=== PATIENT | female | born 2005 | race Hispanic/Latino ===

== ENCOUNTER 2025-08-15 10:28 | Emergency (ER) | payer SELFPAY ==
[~2025-08-15] VITALS: Ht 157.5 cm; Wt 50.3 kg
[2025-08-15 10:30] VITALS: BP 120/70; PULSE 108; RESP 20; TEMP 99.7
--- NOTE | 2025-08-15 10:35 | ERN ---
ED Note History of Present Illness Stated Complaint: PAINFUL URINATION Chief Complaint: Painful Urination Time Seen by MD: 10:31 Dictation: PATIENT IS A 20-YEAR-OLD FEMALE COMING IN TODAY WITH COMPLAINTS OF SUPRAPUBIC PAIN DYSURIA FOR THE LAST FOUR DAYS. SHE ALSO STATES SHE HAS LOW BACK PAIN HOWEVER THERE WAS NO CVAT IN TRIAGE. SHE HAS NO FEVER NO CHILLS NO NAUSEA VOMITING. STATES SHE IS SEXUALLY ACTIV AND USES CONDOMS. SAID I MIGHT BE ON-CALL. NO PRIMARY CARE Allergies: Coded Allergies: No Known Allergies (Unverified Allergy, Unknown, 08/15/25) Past Medical History History: Not Applicable RN Note Reviewed/Agreed w/PFSH: Yes Review of System Dictation CONSTITUTIONAL: NEGATIVE EXCEPT FOR HPI HEAD/FACE: NEGATIVE EXCEPT FOR HPI EENT: NEGATIVE EXCEPT FOR HPI RESPIRATORY: NEGATIVE EXCEPT FOR HPI GASTROINTESTINAL/ABDOMINAL: NEGATIVE EXCEPT FOR HPI GENITOURINARY: NEGATIVE EXCEPT FOR HPI SUPRAPUBIC TENDERNESS WITH DYSURIA MUSCULOSKELETAL: NEGATIVE EXCEPT FOR HPI LOW BACK PAIN INTEGUMENTARY: NEGATIVE EXCEPT FOR HPI NEUROLOGICAL/PSYCH: NEGATIVE EXCEPT FOR HPI HEMATOLOGIC/LYMPHATIC: NEGATIVE EXCEPT FOR HPI ALL SYSTEMS NEGATIVE, EXCEPT NOTED ABOVE. 13 POINT REVIEW OF SYSTEMS ASSESSED AND ALL NEGATIVE EXCEPT FOR ABOVE. Initial Vital Sign VS Vital Signs Date Time Temp Pulse Resp B/P (MAP) Pulse Ox O2 Delivery O2 Flow Rate FiO2 08/15/25 10:30 99.7 108 20 120/70 98 Room Air Physical Exam Dictation VITAL SIGNS REVIEWED MS ACUTE DISTRESS, WELL DEVELOPED, NOURISHED. HEAD AND FACE: NON-TRAUMATIC. EYES: PERRL, PINK CONJUNCTIVAS, EYELID NO TRAUMA, ANTERIOR CHAMBER WITH ARCUS SENILIS. EARS: PINNAS INTACT AND NO SIGNS OF TRAUMA OR ERYTHEMA EAR CANALS CLEAR AND NO DISCHARGE TM NO ERYTHEMA NOSE: NO DISCHARGE, NO BLEEDING. OROPHARYNX: MOUTH NORMAL, TONGUE PINK, PHARYNX CLEAR,NO ERYTHEMA, TONSILS NO EXUDATES, NO ABSCESSES NOTED, MUCOUS MEMBRANE MOIST NECK: SUPPLE, NON-TENDER, NO THYROMEGALY, NO MASSES, NO JVD, NO BRUITS BREAST:DEFERRED CHEST:NO TENDERNESS, NO CREPITUS, NO PARADOXICAL MOVEMENT, NO RETRACTIONS LUNGS:CLEAR, WELL-VENTILATED, SYMMETRIC, NO RALES, NO WHEEZING, NO RHONCHI, NO STRIDOR, GOOD BREATH SOUNDS BILATERALLY HEART: REGULAR RATE, REGULAR RHYTHM, NO MURMUR, NO GALLOPS VASCULAR: NO PERIPHERAL EDEMA, ABDOMEN: SOFT, POSITIVE BOWEL SOUNDS, NONDISTENDED, NO GUARDING, NONTENDER, NO REBOUND, NO MASSES NO HEPATOMEGALY, NO SPLENOMEGALY, NO FREIRE'S SIGN, NO HERNIAS. NEGATIVE CVAT BILATERALLY RECTAL: DEFERRED GENITAL: DEFERRED MILD SUPRAPUBIC TENDERNESS, PALPATED OVER HER CLOTHES IN TRIAGE NEUROLOGICAL: NORMAL SPEECH, MOTOR FUNCTION INTACT, SENSORY FUNCTION INTACT MUSCULOSKELETAL: NECK NONTENDER, FULL RANGE OF MOTION, BACK NONTENDER, FULL RANGE OF MOTION, EXTREMITIES: NONTENDER, FULL RANGE OF MOTION SKIN: COLOR PINK, DRY, NO TURGOR, NO RASH, NO LACERATIONS, NO ABRASIONS, NO CONTUSIONS. LYMPHATIC: DEFERRED Results (Laboratory/Radiology) Laboratory/Radiology Laboratory Tests Test 08/15/25 10:52 08/15/25 10:55 White Blood Count 10.0 K/uL (4.8-10.8) Red Blood Count 4.31 MIL/uL (4.00-5.50) Hemoglobin 10.9 g/dL (12.0-16.0) L Hematocrit 35.0 % (36-48) L Mean Corpuscular Volume 81.2 fL (80-100) Mean Corpuscular Hemoglobin 25.3 pg (27.0-33.0) L Mean Corpuscular Hemoglobin Concent 31.1 g/dL (32.0-36.0) L Red Cell Distribution Width 15.9 % (11.0-15.5) H Platelet Count 272 K/uL (130-400) Mean Platelet Volume 10.7 fL (7.5-10.5) H Immature Granulocyte % (Auto) 0.2 % (0-1) Neutrophils (%) (Auto) 59.4 % (40.0-77.0) Lymphocytes (%) (Auto) 31.4 % (21.0-51.0) Monocytes (%) (Auto) 8.2 % (3.0-13.0) Eosinophils (%) (Auto) 0.6 % (0.0-8.0) Basophils (%) (Auto) 0.2 % (0.0-5.0) Neutrophils # (Auto) 6.0 K/uL (1.8-7.7) Lymphocytes # (Auto) 3.2 K/uL (1.0-4.8) Monocytes # (Auto) 0.8 K/uL (0.1-1.0) Eosinophils # (Auto) 0.06 K/uL (0.00-0.70) Basophils # (Auto) 0.02 K/uL (0.00-0.20) Absolute Immature Granulocyte (auto 0.02 K/uL (0-1) Nucleated Red Blood Cells 0.0 % (0.0-0.19) Sodium Level 134 mmol/L (136-145) L Potassium Level 3.4 mmol/L (3.5-5.1) L Chloride Level 99 mmol/L (101-111) L Carbon Dioxide Level 28 mmol/L (21-32) Blood Urea Nitrogen 6 mg/dL (7-18) L Creatinine 0.8 mg/dL (0.5-1.0) Glomerular Filtration Rate Calc 108 mL/min (>90) Random Glucose 117 mg/dL (70-105) H Total Calcium 9.0 mg/dL (8.5-10.1) Urine Color LIGHT-ORANGE (YELLOW) Urine Appearance TURBID (CLEAR) Urine pH 6.5 (5.0-8.0) Urine Specific [place] 1.016 (1.001-1.031) Urine Protein 100 mg/dL (NEGATIVE) H Urine Glucose (UA) NEGATIVE mg/dL (NEGATIVE) Urine Ketones 60 mg/dL (NEGATIVE) H Urine Occult Blood MODERATE (NEGATIVE) H Urine Nitrate NEGATIVE (NEGATIVE) Urine Bilirubin NEGATIVE mg/dL (NEGATIVE) Urine Urobilinogen 0.2 mg/dL (0.2-1.0) Urine Leukocyte Esterase 500 Winifred/uL (NEGATIVE) H Urine RBC 11-25 /HPF (0-1) H Urine WBC TNTC /HPF (0-1) H Urine WBC Clumps (Auto) MANY /HPF (0-1) Urine Squamous Epithelial Cells FEW /HPF (0-2) Urine Non-Squamous Epithelial Cells 6 /HPF (0-2) Urine Other Crystals (Auto) 20 /HPF (None Seen) Urine Bacteria MOD /HPF (None Seen) Urine Yeast MANY /HPF (None Seen) Urine HCG, Qualitative NEGATIVE (NEGATIVE) Labs Reviewed?: Yes ED Course ED Course Orders Procedure Category Date Status Time Cbc With Differential LAB 08/15/25 Complete ,Urine Test LAB 08/15/25 Complete 10:32 Urinalysis Profile LAB 08/15/25 Complete 10:32 Basic Metabolic Panel LAB 08/15/25 Complete 10:32 Acetaminophen 500mg PHA 08/15/25 Complete Tab (Tylenol 500mg T 11:00 Phenazopyridine Hcl PHA 08/15/25 Complete 200 Mg Tab (Pyridium 11:00 Culture Urine TRAVIS 08/15/25 In Process 11:18 Amox/Clav 875/125mg PHA 08/15/25 Verified Tab (Augmentin 875-1 12:00 Current Medications Medications (Trade) Dose Ordered Sig/Veto Route PRN Reason Start Time Stop Time Status Last Admin Dose Admin Acetaminophen (TYLenol 500MG TAB) 1,000 mg ONCE ONCE PO 08/15/25 11:00 08/15/25 11:01 DC 08/15/25 11:33 Phenazopyridine HCl (PYRIdium HCL 200 MG TAB) 200 mg ONCE ONCE PO 08/15/25 11:00 08/15/25 11:01 DC 08/15/25 11:31 Vital Signs Date Time Temp Pulse Resp B/P (MAP) Pulse Ox O2 Delivery O2 Flow Rate FiO2 08/15/25 11:33 99.5 08/15/25 10:30 99.7 108 20 120/70 98 Room Air 1135/patient states pain is improved after treatment. Additionally she was loaded with the Augmentin 875 for acute cystitis Discharged home with same and told increase fluids. Medical Decision Making MDM Medical discharge making based on basic labs and urinalysis to rule out urolithiasis versus UTI Patient positive for acute cystitis with hematuria, negative We will be discharged home with a Augmentin 875 and Pyridium with ibuprofen Told increase your water intake. See your primary care doctor for follow up and given a list of primary care doctors on staff DX & DISP Disposition: Discharge Departure Impression: Primary Impression: Acute cystitis with hematuria Additional Impressions: Hypokalemia, Dehydration Condition: Stable Scripts Phenazopyridine HCl (Pyridium) 200 Mg Tablet 200 MG PO TID for painful urination for 3 Days, #9 TAB 0 Refills Prov: TENISHA JOHNSTON SPECIAL PROCEDURE TECH 08/15/25 Ibuprofen (Ibuprofen 800 mg Tab) 800 Mg Tab 800 MG PO Q8H PRN for fever or pain, #30 TAB 0 Refills Prov: TENISHA JOHNSTON [employer] PROC[employer]URE TECH 08/15/25 Amoxicillin/Potassium Clav (Amox Tr-K Clv 875-125 mg Tab) 875 Mg-125 Mg Tablet 1 EACH PO BID for 7 Days, #14 TAB 0 Refills Prov: TENISHA JOHNSTON 08/15/25 Additional Instructions: Follow-up with primary care provider in 1 to 2 days. Take medications as directed here in the emergency room. Okay to continue home medications unless otherwise discussed during your visit in the emergency room today. Return to your nearest emergency room if symptoms worsen or if there is no improvement. Call 911 if you need immediate assistance. Take Tylenol or Motrin [id number] as needed and if no contraindications are present. Increase oral hydration. A wound culture or urine culture was ordered here in the emergency room department please follow-up with primary care provider and advise them to get repeat ports from our facility. If you had any Marcel wrap/splints that were applied here, please do not remove them until you see your primary care or specialty. Take antibiotics as directed until gone. Take Pyridium as directed every 8 hours for the next three days, remember it will turn your urine orange red. Increase your water intake. Follow up with one of the doctors on the list provided you in the next 2-3 days if no improvement Time of Disposition: 11:38 I have reviewed the case, and I agree with, Diagnosis and Plan TENISHA JOHNSTON Aug 15, 2025 10:35
[2025-08-15 11:05] LABS: CREATININE 0.8 mg/dL (0.5-1.0); GLOMERULAR FILTR. RATE CALC 108.0 mL/min (>90); GLUCOSE,RANDOM 117.0 mg/dL (70-105); SODIUM SERUM 134.0 mmol/L (136-145); UREA NITROGEN, BLOOD 6.0 mg/dL (7-18)
[2025-08-15 11:05] LABS: APPEARANCE,URINE TURBID (CLEAR); GLUCOSE, URINE (UA) NEGATIVE (NEGATIVE); LEUKOCYTE ESTERASE ,URINE 500 Leu/uL (NEGATIVE); NITRATE,URINE NEGATIVE (NEGATIVE); OCCULT BLOOD,URINE MODERATE (NEGATIVE)
[2025-08-15 11:13] LABS: IMMATURE GRANULOCYTE ABSOLUTE 0.02 K/uL (0-1); NUCLEATED RED BLOOD CELLS 0.0 % (0.0-0.19); PLATELET COUNT (AUTO) 272 K/uL (130-400); RED BLOOD CELL COUNT(AUTO) 4.31 MIL/uL (4.00-5.50); RED CELL DISTRIBUTION WIDTH 15.9 % (11.0-15.5); WHITE BLOOD COUNT (AUTO) 10.0 K/uL (4.8-10.8)
[2025-08-15 11:18] LABS: ADD UA MICROSCOPIC YES
[2025-08-15 11:20] LABS: HCG,QUALITATIVE URINE NEGATIVE (NEGATIVE)
[2025-08-15 11:22] LABS: NON-SQUAMOUS EPITHELIAL CELL 6 /HPF (0-2); SQUAMOUS EPITHELIAL CELL,UR FEW /HPF (0-2); UNCLASSIFIED CRYSTAL 20 /HPF (None Seen); WBC CLUMP MANY /HPF (0-1); YEAST,URINE BUDDING MANY /HPF (None Seen)
[2025-08-15] MEDS: PHENAZOpyridine HCL 200 MG TAB 200 MG TABLET PO ONE (11:31)
[2025-08-15 11:33] VITALS: TEMP 99.5
[2025-08-15] MEDS ORDERED: IBUP-2077 PO (11:39)
[2025-08-15] MEDS ORDERED: AMOX1TAB16 PO (11:39)
[2025-08-15] MEDS ORDERED: PHEN-776 PO (11:39)
[2025-08-15] MEDS: AMOX/CLAV 875/125MG TAB PO ONE (12:05)
== END 2025-08-15 12:17 | disposition home or self-care (01) ==
LOC: EDH 10:28
DX: N30.01 Acute cystitis with hematuria (principal); E87.6 Hypokalemia; E86.0 Dehydration
CPT/HCPCS: 36415; 80048; 81001; 81025; 85025; 87086; 87186; 99284